=== PATIENT | female | born 1950 | race Caucasian/White ===

== ENCOUNTER 2016-08-01 12:19 | Emergency (ER) | payer OTHER, BC ==
[~2016-08-01] VITALS: Ht 172.7 cm; Wt 105.7 kg
[~2016-08-01 12:19] MED LIST: AMITRIPTYLINE H25 MG PO; APRESOLINE20 MG/ML PO; B-123000 MCG; BYSTOLIC10 MG PO; BYSTOLIC5 MG PO; Bystolic PO; CALCIUM600 M1 PO; CARAFATE100 MG/ML PO; COLCRYS0.6 MG PO; CYANOCOBAL1000 MCG/2 IM; CYANOCOBALAM1000 MCG PO; Calcium PO; Colchicine,Colcrys PO; DAZIDOX20 MG PO; DEMADEX20 MG PO; ELAVIL25 MG PO; ENBREL25 MG/0.5 SC; Ecotrin PO; Elavil PO; Enbrel SC; Estrace PO; FIORICET 50-301 EACH PO; FIORINAL PO; FLAX OIL1000 MG PO; FOLIC ACID1 MG PO; Fioricet,Esgic,Repan PO; Flaxseed Oil PO; Folvite PO; K-TAB10 MEQ PO; LYRICA50 MG PO; Levothroid,Synthroid PO; MAGIC MOUTHWASH1 ML MM; METHADONE10 MG PO; METHOTREXATE2.5 MG PO; METRONIDAZOLE500 MG PO; MORPHINE SULFA PO; MORPHINE SULFA100 M2 PO; MORPHINE SULFAT60 M1 PO; MS Contin PO; NEXIUM40 MG PO; OXYCONTIN30 MG PO; OxyCODONE PO; PANTOPRAZOLE SO40 MG PO; PERCOCET 10/1 TABLET PO; Protonix PO; RELPAX PO; SYNTHROID50 MCG PO; SYNTHROID88 MCG PO; TYLENOL REGULA325 MG PO; VALSARTAN160 MG PO; VITAMIN D35000 UNIT PO; Vitamin D PO; ZAROXOLYN2.5 MG PO; predniSONE PO
[2016-08-01 13:04] LABS: MCH 31.2 PG (29.0-34.0); MCHC 32.4 G/DL (30.0-36.0); MCV 96.1 FL (83-99); MEAN PLAT.VOLUME 11.3 uM^3 (9.5-12.4); PLATELET COUNT 117 K/uL (156-360); RBC DIS.WIDTH-CV 13.2 % (11.8-14.6); RBC DIS.WIDTH-SD 47.1 % (39-53); RED BLOOD COUNT 3.85 M/uL (3.80-5.20); WHITE BLOOD COUNT 2.7 K/uL (4.1-10.2)
[2016-08-01 13:36] LABS: ANION GAP 14 MEQ/L (2-14); CHLORIDE 111 MEQ/L (99-109); POTASSIUM 3.5 MEQ/L (3.7-5.4); SAMPLE HEMOLYSIS CHECK 0; SAMPLE ICTERIC CHECK 0; SAMPLE LIPEMIA CHECK 0; SODIUM 144 MEQ/L (136-147)
[2016-08-01 13:41] LABS: GFR ESTIMATE (CALCULATED) > 59 mL/min/; GLUCOSE 115 mg/dL (70-99); UREA NITROGEN (BUN) 9 mg/dL (9-23)
[2016-08-01 13:43] LABS: TROP-I INTERPRETATION NEGATIVE; TROPONIN-I < 0.01 ng/mL (0.0-0.30)
[2016-08-01] MEDS ORDERED: PREDNISONE50 MG PO (14:42)
[2016-08-01 15:09] VITALS: BP 184/97
== END 2016-08-01 15:11 | disposition home or self-care (01) ==
LOC: EME → EDBD 12:19 → EME 15:11
PROVIDERS: Emergency Medicine
DX: J44.1 Chronic obstructive pulmonary disease with (acute) exacerbation (principal); M32.9 Systemic lupus erythematosus, unspecified; M79.7 Fibromyalgia; I10 Essential (primary) hypertension; K21.9 Gastro-esophageal reflux disease without esophagitis; Z87.891 Personal history of nicotine dependence
CPT/HCPCS: 71020; 80048; 84484; 85027; 93005; 94640; 99281; 99285; J2405; J7512

== ENCOUNTER 2016-10-06 16:55 | Emergency (ER) | payer OTHER, BC ==
[~2016-10-06] VITALS: Ht 172.7 cm; Wt 100.0 kg
[~2016-10-06 16:55] MED LIST changes: +PREDNISONE50 MG PO
[2016-10-06 17:52] LABS: HEMATOCRIT 41.9 % (36.0-46.0); MCHC 32.2 G/DL (30.0-36.0); MCV 93.1 FL (83-99); MEAN PLAT.VOLUME 11.6 uM^3 (9.5-12.4); PLATELET COUNT 128 K/uL (156-360); RBC DIS.WIDTH-CV 12.8 % (11.8-14.6); RBC DIS.WIDTH-SD 44.2 % (39-53); WHITE BLOOD COUNT 4.7 K/uL (4.1-10.2)
[2016-10-06 18:01] LABS: CHLORIDE 104 mEq/L (99-109); POTASSIUM 3.8 mEq/L (3.7-5.4); SODIUM 138 mEq/L (136-147)
[2016-10-06 18:03] LABS: GLUCOSE 111 mg/dL (70-99)
[2016-10-06 18:04] LABS: ANION GAP 13 MEQ/L (2-14)
[2016-10-06 18:07] LABS: GFR ESTIMATE (CALCULATED) > 59 mL/min/
[2016-10-06 18:08] LABS: UREA NITROGEN (BUN) 8 mg/dL (9-23)
[2016-10-06 23:42] VITALS: BP 166/88
== END 2016-10-06 23:44 | disposition home or self-care (01) ==
LOC: EME 16:55
DX: S01.81XA Laceration without foreign body of other part of head, initial encounter (principal); S01.21XA Laceration without foreign body of nose, initial encounter; S02.2XXA Fracture of nasal bones, initial encounter for closed fracture; S52.92XA Unspecified fracture of left forearm, initial encounter for closed fracture; W18.30XA Fall on same level, unspecified, initial encounter; M79.7 Fibromyalgia; K21.9 Gastro-esophageal reflux disease without esophagitis; I10 Essential (primary) hypertension; F32.9 Major depressive disorder, single episode, unspecified; G43.909 Migraine, unspecified, not intractable, without status migrainosus; Z87.891 Personal history of nicotine dependence
CPT/HCPCS: 70450; 70486; 71020; 73110; 80048; 85027; 93005; 99281; 99285; J2270; J2405; J2765